=== PATIENT | male | born 2000 | race Two or more races ===

== ENCOUNTER 2020-09-11 08:00 | Outpatient (REF) | payer OTHER, SELFPAY | END 2020-09-11 08:01 | disposition home or self-care (01) | LOC: HO.LAB 08:00 | PROVIDERS: Visit Provider Internal Medicine | DX: Z20.822 Contact with and (suspected) exposure to COVID-19 (principal) | CPT/HCPCS: 36415; C9803; U0003; U0005 ==

== ENCOUNTER 2021-10-26 08:57 | Outpatient (REF) | payer OTHER, SELFPAY ==
[2021-10-26 09:08] LABS: MANUAL DIFF FLAG NO
[2021-10-26 09:22] LABS: Basophils Percent Auto 0.4 % (0-2); Eosinophils Absolute Auto 0.1 X10*3/uL (0.0-0.4); Eosinophils Percent Auto 1.8 % (0-4); Hematocrit 48.2 % (42.0-52.0); Hemoglobin 15.9 g/dl (14.0-18.0); Imm Gran Abs Auto 0.02 X10*3/uL (0.00-0.03); Imm Gran Pct Auto 0.3 % (0.0-0.4); Lymphocytes Absolute Auto 2.4 X10*3/uL (1.2-4.9); Lymphocytes Percent Auto 36.1 % (20-40); Mean Corpuscular Hemoglobin 27.9 pg (27.0-33.0); Mean Corpuscular Volume 84.6 fL (80.0-98.0); Mean Platelet Volume 10.2 fL (9.4-12.4); Monocytes Absolute Auto 0.5 X10*3/uL (0.1-1.2); Monocytes Percent Auto 7.8 % (2-11); Neutrophils Absolute Auto 3.6 x10*3/uL (2.0-8.3); Neutrophils Percent Auto 53.6 % (45-73); Platelet Count 294 X10*3/uL (160-400); Red Cell Distribution Width 12.8 % (11.0-16.0); White Blood Count 6.7 X10*3/uL (4.8-10.8)
[2021-10-26 09:53] LABS: Cholesterol 222 mg/dL; Glucose Fasting 93 mg/dL (60-99); HDL Cholesterol 39 mg/dL; LDL Cholesterol Calculated 162 mg/dl; Triglycerides 107 mg/dL
[2021-10-26 10:15] LABS: Thyroid Stimulating Hormone 0.88 uIU/mL (0.32-4.0)
== END 2021-10-26 08:58 | disposition home or self-care (01) ==
LOC: HO.LAB 08:57
PROVIDERS: PCP Family Medicine; Visit Provider Family Medicine
DX: R51.9 Headache, unspecified (principal); Z82.49 Family history of ischemic heart disease and other diseases of the circulatory system
CPT/HCPCS: 36415; 80061; 82947; 84443; 85025

== ENCOUNTER 2024-03-05 07:36 | Outpatient (REF) | payer OTHER, SELFPAY ==
[2024-03-05 09:39] LABS: Cholesterol 197 mg/dL (<200); Glucose Fasting 94 mg/dL (60-99); HDL Cholesterol 40 mg/dL (>40); LDL Cholesterol Calculated 133 mg/dL (<100); Triglycerides 121 mg/dL (<150)
== END 2024-03-05 07:37 | disposition home or self-care (01) ==
LOC: HO.LAB 07:36
PROVIDERS: PCP Family Medicine; Visit Provider Family Medicine
DX: E78.00 Pure hypercholesterolemia, unspecified (principal); Z83.3 Family history of diabetes mellitus
CPT/HCPCS: 36415; 80061; 82947

== ENCOUNTER 2025-03-08 15:45 | Outpatient (AMB) | payer OTHER, SELFPAY ==
--- NOTE | 2025-03-08 15:58 | MHC.PC.OV ---
Vital Signs 03/08/25 16:05 Height 5 ft 10 in Weight 97.976 kg BMI 31.0 BP 122/90 H Respiration 14 Pulse 71 Pulse Source Pulse Oximeter Temp 98.3 F Temp Source Temporal Artery Scan Pulse Oximetry (%) 98 Oxygen Delivery Method Room Air Intake Visit Reasons: Routine / Dr Frost Md Pediatric Allergist Required: No Accompanied by: Self / Same As Patient Allergies No Known Allergies Allergy (Unverified 03/08/25 16:04) Medication List - Last Reconciled 03/08/25 by SEAN Rosario tizanidine 4 mg PO Q8H PRN Tobacco use date assessed: 03/08/25 Dental Screening Dental Screen Date: 03/08/25 Did you have a dental visit in the last 12 months?: Yes Did you have a dental problem in the last 6 months where you did not have access to dental care?: No Was dental information given to patient?: No HPI HPI Comments History of Present Illness Details 24 year old male without any significant past medical history presents for evaluation and to establish care. Concerns: Frequent headaches- increasing in frequency. Chiro not helping. Occipital headaches wrapping to islam. Occurring 1-2 times every other week. No vision changes. Occ aura. Can feel the headaches coming on. Trobbing tension. Photophobia, lays down. Using excedrin, tylenol with some effect. Increasing in frequency 3 months ago. Does report stress, works in manufacturing long hours. No teeth grinding. Has tried PT last year without effect. ROS: see hpi EXAM: Constitutional - Awake and Alert, No apparent distress Eyes - PERRL Neck - supple, full ROM, no midline ttp. Bilateral paraspinal tenderness extending into base of scalp Cardiovascular - S1S2, RRR, No edema Respiratory - Normal lung expansion, Normal respiratory effort, No respiratory distress, CTA bilaterally Extremities - no calf tenderness bilaterally, no swelling Skin - Warm/Dry Neurological - Alert & oriented x3. CN II-XII in tact, 5/5 strength bue Psychological - Appropriate affect PFSH Social History Housing: House Patient Tobacco Use Status: Never used Tobacco e-Cigarette/Vaping Use: Never Used service: No Current occupational status: employed Cognitive needs: No Hearing needs: No Vision needs: Yes (Rx glasses) Questionnaire PHQ-9 Over the last 2 weeks, how often have you been bothered by any of the following problems? 1. Little interest or pleasure in doing things: several days 2. Feeling down, depressed, or hopeless: several days 3. Trouble falling or staying asleep, or sleeping too much: more than half the days 4. Feeling tired or having little energy: more than half the days 5. Poor appetite or overeating: several days 6. Feeling bad about yourself - or that you are a failure or have let yourself or your family down: not at all 7. Trouble concentrating on things, such as reading the newspaper or watching television: several days 8. Moving or speaking so slowly that other people could have noticed. Or the opposite - being so fidgety or restless that you have been moving around a lot more than usual: not at all 9. Thoughts that you would be better off or of hurting yourself in some way: not at all Total score: 8 Source: Developed by Drs. Omero Black, Marcia Oshea, Mike Abarca and colleagues, with an educational marlen from [employer]. Thrive Questionnaire Date Thrive assessed: 03/08/25 I am a: Patient What is your living situation today?: I have a steady place to live Within the past 12 months, did the food you bought not last and you didn't have the money to get more?: Never true Within the past 12 months, did you worry whether your food would run out before you got money to buy more?: Never true Do you have trouble paying for medicines?: No Do you have trouble getting transportation to medical appointments?: No Do you have trouble paying your heating and electricity bill?: No Do you have trouble taking care of your child, family member or friend?: No Do you have trouble with day-to-day activities such as bathing, preparing meals, shopping, managing finances, etc.?: No Are you currently unemployed and looking for a job?: No Are you interested in more education?: No Please select the resources that you would like help with: None THRIVE Score: 0 PRASHANTH-7 AMB Questionnaire PRASHANTH-7 Date PRASHANTH - 7 assessed: 03/08/25 Feeling nervous, anxious, or on edge: 0 = Not at all Not being able to stop or control worryin = Several days Worrying too much about different things: 1 = Several days Trouble relaxin = Several days Being so restless that it is hard to sit still: 2 = More than half the days Becoming easily annoyed or irritable: 2 = More than half the days Feeling afraid as if something awful might happen: 0 = Not at all Total PRASHANTH-7 score (0-4 normal; 5-9 mild; 10-14 moderate; 15-21 severe): 7 Source: Developed by Drs. Omero Black, Marcia Oshea, Mike Abarca and colleagues, with an educational marlen from [employer]. Physical exam (Primary Care) Vital Signs: Last Vital Signs Temp 98.3 F 03/08/25 16:05 Pulse 71 03/08/25 16:05 Resp 14 03/08/25 16:05 BP 122/90 H 03/08/25 16:05 Pulse Ox 98 03/08/25 16:05 Oxygen Delivery Method Room Air 03/08/25 16:05 BMI result Body Mass Index 31.0 Tobacco/Smoking Status: Tobacco use Status Tobacco use date assessed 03/08/25 03/08/25 16:09 Patient Tobacco Use Status Never used Tobacco 03/08/25 16:09 e-Cigarette/Vaping Use Never Used 03/08/25 16:09 PHQ-9: PHQ-9 Score PHQ-9: Total score 8 03/08/25 16:37 Thrive Assessment: Date of Thrive Assessment Date Thrive assessed 03/08/25 03/08/25 16:09 Coding Level of Care Code New Pt Level 3 (87777) Diagnoses Tension headache G44.209 Assessment & Plan Assessment & Plan (1) Tension headache: Code(s): G44.209 - Tension-type headache, unspecified, not intractable Category: Medical Plan: Can continue with chiropractic but would benefit from physical therapy, referral placed. Can use ibuprofen 800mg TID prn, tylenol, or excedrin. Given tizanidine to use as needed for muscle tension. Plan Follow up in 6 months for annual exam Orders: Orders PT Evaluation and Treatment Today G44.209 - Tension-type headache, unspecified, not intractable Medications: New tizanidine 4 mg PO Q8H PRN 30 caps 0RF muscle spasticity ibuprofen 800 mg PO Q8H PRN 30 tabs 0RF pain
[2025-03-08 16:05] VITALS: BP 122/90; PULSE 71; RESP 14; TEMP 36.8; O2SAT 98; BMI 31.0
--- OUTSIDE RECORDS SUMMARY | 2025-03-08 17:41 | XMS_ITS | Encounter Summary ---
Author Organization [facility] Address [address] [place] [address] Phone Care Team Providers Care Hospital Chief Executive Officer Name Role Phone Unavailable Primary Care Provider Unavailabl e Encounter Details Date Type Department Care Team (Late st Contact Info) Description 02/19/2017 Conversion Encounter [facility] - [address] [address] Social History Tobacco Use Types Packs/Day Years Used Date Smoking Tobacco: Never Comments:Never smoker Sex and Gender Information Value Date Recorded Sex Assigned at Male 04/19/2019 10:53 AM EDT Legal Sex Male 4:54 PM EDT Gender Identity Male 04/19/2019 10:53 AM EDT Sexual Orientation Straight 04/19/2019 10 :53 AM EDT documented as of this encounter Plan of Treatment Not on file documented as of this encounter Visit Diagnoses Not on filedocumented in this encounter
--- OUTSIDE RECORDS SUMMARY | 2025-03-08 17:41 | XMS_ITS | Clinical Summary ---
Author Organization [facility] Address [address] [place] [address] Phone Care Team Providers Care Senior Sql Server Developer Name Role Phone Unavailable Primary Care Provider Unavailabl e Allergies No known active allergies Medications No known medications Resolved Problems Problem Noted Date Diagnosed Date Resolved Date Acne 11/20/2011 02/02/2018 Immunizations Immunization Administration Dates Next Due DTaP 5 03/25/2004, 1,1999,08/06,1999 HPV, Quadrivalent 02/15/2013,01/22/2012,11/20/19 12 Hep A, ped/adol 03/11/2016,04/18/2014 Hep B, ped/adol 09/16/2001,04/21/2001,1999 Hib (PRP-T) 04/21/2001, 0,1999,06/04 IPV 03/25/2004, 1,1999,06/04 Influenza Split 04/18/2011 Influenza, injectable, quadr ivalent, preservative free 04/19/2019,03/11/2016 Influenza, intranasal, quadrivalent 04/18/2014 MMR 03/25/2004,04/06/2000 Meningococcal Conj (Menactra) MCV4P 11/20/2011,0 11/12/2010 Pneumococcal Conjugate 03/22/2001,04/06/2000 Tdap 11/20/2011,11/12/2010 Varicella 12/18/2011,03/22/2001 Family History Medical History Relation Name Comments No Known Problems Father portia No Known Problems Half-Sister bogdan Fibromyalgia Mother daniel Migraines Mother daniel ADD / ADHD Other Diabetes Other Hyperlipidemia Other Migraines Other Seizures Other Strabismus Other Relation Name Status Comments Father portia Alive Half-Sister bogdan Alive Half sister (M) : Alive and well Maternal Grandmother Materna l grandmother: Diabetes mellitus type 2 Mother daniel Alive Mother: Fibromy algia, Migraines Other Family history of Migraines, Family history of Strabismus, Family history of ADD/ADHD, Family history of Diabetes mellitus Social History Tobacco Use Types Packs/Day Years Used Date Smoking Tobacco: Never Smokeless Tobacco: Never Comments:Never smoker Alcohol Use Standard Drinks/Week Comments Yes 0 (1 standard drink = 0.6 oz pur e alcohol) occ Hunger/Food Answer Date Recorded No 03/31/2020 Stable Housing Answer Date Recorded No 03/31/2020 Transportation Concerns Answer Date Rec orded No 03/31/2020 Hazards in Home Answer Date Recorded No 05/19/2020 Financing Utilities Answer Date Recorde d No 05/19/2020 Safety at Home Answer Date Recorded No 05/19/2020 Outside Support Answer Date Recorded No 05/19/2020 Understanding Health Concerns Answer Da te Recorded No 05/19/2020 Financing Health Concerns Answer Date R ecorded No 05/19/2020 Missing School or Work Answer Date Td rded No 05/19/2020 Sex and Gender Information Value Date Recorded Sex Assigned at Male 04/19/2019 10:53 AM EDT Legal Sex Male 4:54 PM EDT Gender Identity Male 04/19/2019 10:53 AM EDT Sexual Orientation Straight 04/19/2019 10 :53 AM EDT Last Filed Vital Signs Vital Sign Reading Time Taken Comments Blood Pressure 107/73 04/19/2019 10:26 AM EDT Pulse 71 04/19/2019 10:26 AM EDT Temperature 36.4 C (97.6 F) 04/19/2019 10:26 AM EDT Respiratory Rate - - Oxygen Saturation - - Inhaled Oxygen Concentration - - Weight 77.1 kg (170 lb) 04/19/2019 10:26 AM EDT Height 175.9 cm (5' 9.25 ) 04/19/2019 10:26 AM E DT Body Mass Index 24.92 04/19/2019 10:26 AM EDT Plan of Treatment Health Maintenance Due Date Last Done Comments DTaP,Tdap,and Td Vaccines (8 - Td or Tdap) 11/19/2021 11/20/2011, 11/12/2010, 03/25/2004, Additional history exists COVID-19 Vaccine ( season) 2024 11/29/2020, 11/08/2020 Influenza Vaccines (#1) 2025 04/19/20 19, 03/11/2016, 04/18/2014, Additional history exists Pneumococcal Vaccine Completed 03/22/2001, 04/06/20 00 HIB Vaccines Completed 04/21/2001, 09/04, 1999, Additional history exists Hepatitis B Vaccines Completed 09/16/2001, 04/21/2001, 1999 IPV Vaccines Completed 03/25/2004, 04/05, 1999, Additional history exists MMR Vaccines Completed 03/25/2004, 04/06/2000 Meningococcal Vaccine Aged Out 11/20/2011, 011 No longer eligible based on patient's age to complete this topic Varicella Vaccines Completed 12/18/2011, 03/22/2001 HPV Vaccines Completed 02/15/2013, 01/03, 11/20/2011 Hepatitis A Vaccines Completed 03/11/2016, 04/18/20 14 Men B Vaccine Aged Out No longer elig ible based on patient's age to complete this topic
--- OUTSIDE RECORDS SUMMARY | 2025-03-08 17:41 | XMS_ITS | Encounter Summary ---
Author Organization [facility] Address [address] [place] [address] Phone Care Team Providers Care President And Cmo Name Role Phone Unavailable Primary Care Provider Unavailabl e Encounter Details Date Type Department Care Team (Late st Contact Info) Description 11/02/2009 Documentation [facility] [place] [address] Family Medicine, Physician [facility] [place] [address] Social History Tobacco Use Types Packs/Day Years Used Date Smoking Tobacco: Never Assessed Sex and Gender Information Value Date Recorded [...]
--- OUTSIDE RECORDS SUMMARY | 2025-03-08 17:41 | XMS_ITS | Encounter Summary ---
Author Organization [facility] Address [address] [place] [address] Phone Care Team Providers Care Chiropractic Neurologist Name Role Phone Unavailable Primary Care Provider Unavailabl e Encounter Details Date Type Department Care Team (Late st Contact Info) Description 11/02/2009 Documentation [facility] Counts include 234 beds at the [facility] [place] [address] Family Medicine, Physician Counts include 234 beds at the [facility] [address] Social History Tobacco Use Types Packs/Day Years [...]
--- OUTSIDE RECORDS SUMMARY | 2025-03-08 17:41 | XMS_ITS | Encounter Summary ---
Author Organization [facility] Address [address] [place] [address] Phone Care Team Providers Care Used Car Manager Name Role Phone Unavailable Primary Care Provider Unavailabl e Encounter Details Date Type Department Care Team (Late st Contact Info) Description 11/02/2009 Documentation [facility] [place] [address] Family Medicine, [place] [address] Social History Tobacco Use Types Packs/Day Years [...]
== END 2025-03-08 16:45 | disposition home or self-care (01) ==
LOC: HO.HMCHD 15:46
PROVIDERS: PCP Family Medicine; Visit Provider Physician Assistant
DX: G44.209 Tension-type headache, unspecified, not intractable (principal)

== ENCOUNTER 2025-04-12 14:00 | Outpatient (RCR) | payer OTHER, SELFPAY ==
--- NOTE | 2025-03-22 13:10 | MHC.PT.EP ---
[facility] [place] [facility] [place] [facility] [place] [facility] [address] Vitaly Wen [address] [phone] F: [phone] F: [phone] F: [phone] F: [phone] Physical Therapy Plan of Care Date of Evaluation: 03/22/25 Date of Surgery: Diagnosis: tension WATSON Assessment: 25 y/o male referred to PT wtih tension WATSON. He has a lifelong hx of migraines but they have recently worsened. WATSON occur 1-4x/week and can last all day. They radiate from subocciptal to temporal region with throbbing. Unsure what aggravates sx but he will need to sleep and go into dark room affecting his functional activity. Examination shows decreased cervical AROM, decreased scapular strength, increased tissue tension, hypmobile PA mobility C6-T6 and impaired postural awareness. Recommend PT 2x/week for 5 weeks to address impairments, implement HEP and optimize functional mobility Frequency and Duration: The patient will be seen 2x/week for 5 weeks Short Term Goals: 3 weeks I with HEP Improve cervical extension to 45* Shelter Goals: 5 weeks I with HEP and self management of sx Pt will reports >50% decrease in WATSON/ week to optimize functional activity Treatment Plan: Modalities to reduce pain, spasms and effusion. Manual therapy to restore motion and function. Therapeutic exercise to improve strength and flexibility. Neuromuscular re-education for posture and balance. Therapeutic activities to return to functional activities of daily living. Electronically signed by: Maria Ines Gorman PT Please sign and return to therapist. Thank you for your referral.
--- NOTE | 2025-05-16 11:49 | MHC.PT.DC ---
[facility] [place] [facility] [place] [facility] [place] [facility] [address] Vitaly Wen [address] [phone] F: [phone] F: [phone] F: [phone] F: [phone] Physical Therapy Discharge Report Diagnosis: tension WATSON Date of Surgery: Date of Evaluation: 03/22/25 Date of Discharge: 05/16/25 Treatments to Date: 5 Cancellations to Date: 2 No Shows to Date: 1 Discharge Status: Improved Function Independent with HEP Discharge Summary: Overall he has made excellent progress in regards to symptom management, posture and strength. He still requires cues to decrease excessive forward head posture in standing. He did not f/u with final 2 visits and is d/c at this time Electronically signed by: Maria Ines Gorman PT Please sign and return to therapist. Thank you for your referral.
== END 2025-05-16 11:50 | disposition home or self-care (01) ==
LOC: HO.PT 14:00
PROVIDERS: PCP Physician Assistant; Visit Provider Physician Assistant
DX: G44.209 Tension-type headache, unspecified, not intractable (principal)
CPT/HCPCS: 97110; 97112; 97140; 97161; 97530